=== PATIENT | female | born 1960 | race Caucasian/White ===

== ENCOUNTER 2025-04-24 23:33 | Emergency (ER) | payer MEDICARE, MEDICAID, SELFPAY ==
[2025-04-24 23:34] VITALS: BMI 43.9
[2025-04-24 23:48] VITALS: BP 132/74; RESP 17; TEMP 37; O2SAT 95
--- NOTE | 2025-04-25 00:08 | XR_ITS ---
Examination: Knee, left , 3 views Technique: Knee AP, lateral, oblique 3 views Date and time of exam: April 25, 2025, 0122 hrs. Indications: Onset acute knee pain today. Findings: Moderate osteopenia. Mild narrowing medial joint space Significant narrowing patellofemoral joint No fracture Impression: Significant chondromalacia patella
--- NOTE | 2025-04-25 00:08 | XR_ITS ---
Examination: Duplex scan of the lower extremity, unilateral left Date and time of exam: April 25, 2025, 0047 hrs., Comparison January 06, 2024 Indications: Left lower leg pain beginning several days ago. Technique: Duplex scan of the extremity veins using B-mode/grayscale imaging and Doppler spectral analysis and color flow Attention is directed to internal echogenicity, compression and augmentation involving these veins, color flow assessment, spectral analysis Findings: Major deep venous structures in the extremity demonstrate normal course and caliber. There is no evidence of deep vein thrombosis. Normal color flow and spectral analysis Impression: Negative for DVT..
--- NOTE | 2025-04-25 02:38 | PRELIM_ITS ---
Left lower extremity venous Doppler ultrasound with wave Doppler spectral analysis. April 25, 2025 0047 hours Clinical history: R/O DVT Technique: Duplex scan of the left lower extremity deep venous systems was performed utilizing 2D grayscale imaging, Doppler spectral analysis and color flow Doppler and with compression. Comparison: None. Findings: Robertson scale, color flow and spectral Doppler evaluation of the left lower extremity deep veins was performed. The common femoral, superficial femoral and popliteal veins are patent and compressible. Normal respiratory variation is noted. There is no evidence of occlusive or nonocclusive thrombus. The great saphenous vein is patent and compressible at the level of the saphenofemoral junction. Impression: No sonographic evidence of deep venous thrombosis in the left lower extremity. Report Electronically Signed By: Lokesh Perez 04/25/2025 2:37:38 AM [EST]
--- NOTE | 2025-04-25 03:31 | EDNOTE_ITS ---
Lower Extremity Injury RME/HPI General Chief Complaint: Extremity Injury, Lower Stated Complaint: L KNEE PAIN Time Seen by Provider: 04/24/25 23:40 Arrival date/time: 04/24/25 23:33 This is a case of 65-year-old female who came with with his son patient is deaf able to communicate by the help of his son stated that the patient is complaining of left knee pain for 2 days with swelling patient denies any injury or trauma denies any numbness weakness or tingling sensation patient states that the pain was sharp radiating to his leg but no swelling on the leg no calf tenderness Limitations: no limitations Related Data Previous Rx's ?Medication ?Instructions ?Recorded clotrimazole 1 % topical ointment 1 % .Route BID #56.7 grams 11/29/17 fluconazole 100 mg tablet 100 mg PO Q24H #7 tabs 11/29 (Diflucan) hydrocodone 7.5 mg-acetaminophen 1 tab PO Q8H PRN pain #20 tabs 05/31/21 325 mg tablet hydrocodone 5 mg-acetaminophen 325 1 tab PO Q6H PRN pa in #124 tabs 04/25/25 mg tablet Allergies Allergy/AdvReac Type Severity Reaction Status Date / Time No Known Allergies Allergy Verified 04/24/25 23:39 Review of Systems Review of Systems Systems Reviewed: All systems reviewed, normal except as documented Constitutional Constitutional: Reports system reviewed and no additional complaints, except as documented and Reports as per HPI Cardiovascular Cardiovascular: Reports system reviewed and no additional complaints, except as documented and Reports as per HPI Respiratory Respiratory: Reports system reviewed and no additional complaints, except as documented and Reports as per HPI Gastrointestinal Gastrointestinal: Reports system reviewed and no additional complaints, except as documented and Reports as per HPI Musculoskeletal Musculoskeletal: Reports system reviewed and no additional complaints, except as documented and Reports as per HPI Integumentary/Breasts Skin/Breast: Reports system reviewed and no additional complaints, except as documented Neurologic Neurologic: Reports system reviewed and no additional complaints, except as documented and Reports as per HPI Past Medical History Past Medical History CARDIAC: Negative Congestive Heart Failure RESPIRATORY: Negative Chronic Obstructive Pulmonary Disease (COPD) GENITOURINARY: Negative Renal Disease ENT: Positive Deafness ENDOCRINE: Negative Diabetes Mellitus Type 1 or Diabetes Mellitus Type 2 Social History SMOKING STATUS: Never smoker ED Exam General Limitations: Present no limitations General appearance: Present alert, in no apparent distress and other (Patient is awake alert oriented not in distress nontoxic looking well-hydrated well- nourished) Head Head exam: Present atraumatic, normocephalic and normal inspection Eye Eye exam: Present normal appearance, PERRL and EOMI ENT ENT exam: Present normal exam, normal oropharynx and mucous membranes moist Neck Neck exam: Present normal inspection, full ROM and trachea midline; Absent tenderness, meningismus, lymphadenopathy or thyromegaly Chest Chest inspection: Present normal inspection and symmetric chest wall rise; Absent tenderness or rash Respiratory Respiratory exam: Present normal lung sounds bilaterally; Absent respiratory distress, wheezes, stridor, accessory muscle use or prolonged expiratory phase Cardiovascular Cardiovascular exam: Present regular rate, normal rhythm and normal heart sounds; Absent bradycardia, tachycardia, irregular rhythm, systolic murmur or diastolic murmur Abdominal Exam Abdominal exam: Present soft and normal bowel sounds Extremities Exam Extremities exam: Present normal inspection and full ROM Expanded Lower Extremity Exam Hip/Pelvis exam: Present normal inspection and full ROM; Absent tenderness or swelling Upper leg exam: Present normal inspection and full ROM; Absent tenderness or swelling Knee exam: Present tenderness (Moderate tenderness on the left anterior knee), swelling (Mild swelling), effusion and other (No crepitation no deformity no clicking sound ROM limited due to pain pulses were full and equal capillary refill less than 2 seconds sensory intact negative Sharma's negative Homans signs negative calf tenderness); Absent abrasion, laceration, ecchymosis, deformity, crepitus, dislocation, erythema, anterior drawer sign, posterior draw sign, pain with valgus, laxity with valgus, pain with varus, laxity with varus or knee extension intact Lower leg exam: Present normal inspection, full ROM and Achilles tendon intact; Absent tenderness, swelling or Homans' sign Ankle exam: Present normal inspection and full ROM; Absent tenderness or swelling Back Exam Back exam: Present normal inspection and full ROM Neurological Exam Neurological exam: Present alert, oriented X3, CN II-XII intact, reflexes normal and other (Patient is a unable to perform or test her gait due to pain in the left knee); Absent motor sensory deficit Psychiatric Psychiatric exam: Present normal affect and normal mood Skin Skin exam: Present warm, dry, intact and normal color Course Quality Measures none Orders Category Date Time Status US venous doppler LE LT Stat Exams 04/25/25 00:08 Taken XR knee LT 3V Stat Exams 04/25/25 00:08 Taken Dexamethasone Inj [Decadron Inj] Med 04/25/25 03:27 Discontinued 10 mg PO X1 ONE HYDROcodone*/APAP 5/325 [[place] 5/325] Med 04/25/25 03:27 Discontinued 1 tab PO X1 ONE Vital Signs Vital signs: Vital Signs Temperature 98.6 F 04/24/25 23:48 Respiratory Rate 17 04/24/25 23:48 Blood Pressure 132/74 H 04/24/25 23:48 Pulse Oximetry (%) 95 04/24/25 23:48 Oxygen Delivery Method Room Air 04/24/25 23:48 Oxygen saturation is 95% in room air Extremity Injury, Lower MDM Narrative MDM Narrative:: This is a case of 65-year-old female who came with with his son patient is deaf able to communicate by the help of his son stated that the patient is complaining of left knee pain for 2 days with swelling patient denies any injury or trauma denies any numbness weakness or tingling sensation patient states that the pain was sharp radiating to his leg but no swelling on the leg no calf tenderness physical examination patient is awake alert oriented not in distress not toxic looking patient noted to have moderate tenderness and mild swelling on the left anterior knee no prepatellar or patellar tenderness or swelling but with mild knee joint effusion no crepitation no deformity no clicking sound ROM is limited due to pain pulses were full and equal capillary refill less than 2 seconds sensory intact no calf tenderness negative Homans signs negative Sharma signs x-ray showed no fracture no dislocation ultrasound showed negative for DVT patient was given [place] and prednisone here for possible ost eoarthritis she was advised to see an orthopedic surgeon to be referred by the PCP for MRI of the left knee to rule out meniscus or ligament injury RICE treatment was advised to the patient knee immobilizer was placed on the left knee patient tolerated well neurovascular intact for any worsening symptoms return precaution in the ER was advised Patient was discharged with comfortable condition walking with stable gait. Patient verbalized no further complains explained diagnosis and answered patient question. Patient is comfortable with the proposed management plan including the need to follow up with his/her primary care physician and any specialist if applicable Discussed patient for any urgent condition or worsening sx, He/She needed to go to emergency room immediately or call 911. Patient acknowledge the responsibility to follow up as instructed and to monitor her/his symptoms. For any persistence of the symptoms for more than 3-5 days return precaution advised. Discussed the result of the test and was given printed discharge instruction Patient data External records reviewed:: [facility] previous records Clinical information provided by:: patient Social determinants that could affect healthcare access:: none Patient has the following chronic illnesses:: None How is presenting disease/condition affected by chronic disease/condition?: no chronic disease Evaluation data The following diagnostics were reviewed and interpreted by me:: radiology exam(s) Lab and/or radiology exams considered but not ordered:: Reviewed Interpretation Summary: Reviewed Medications / Prescriptions Medications or Prescriptions considered but not ordered:: Given Medication administrations:: Medication Administration History Discontinued Medications Hydrocodone Bitart/Acetaminophen (Hydrocodone/[place] 5/325 Tablet) 1 tab PO X1 ONE Stop: 04/25/25 03:28 Dexamethasone Sodium Phosphate (Dexamethasone Sod Phos Inj 10 Mg/Ml Vial) 10 mg PO X1 ONE Stop: 04/25/25 03:28 Given Consultations Consultation(s) initiated? (list below): No Diagnosis Extremity Injury, Lower Differential Diagnosis: other (Osteoarthritis knee joint effusion Meniscus injury knee fracture knee sprain) Most likely diagnosis given after review of the tests above:: Osteoarthritis knee joint effusion Admission Indicated Admission indicated?: not indicated Explain why admission is indicated or not indicated:: Not indicated Admission Request Was there a request for admission?: No Admission Attestation Admission request attestation: Not indicated Disposition Plan Disposition Plan: Discharge Discharge Attestation Discharge Attestation: The patient and all family members were given an opportunity to ask questions and understood the discharge instructions. Discharge instructions specifically effects, indications for sooner follow up or return to the emergency department, and the expected course of current diagnosis. Patient condition: Stable Discharge Plan Plan Patient condition on transfer: Stable Prescriptions/Referrals Prescriptions/Med Rec: New hydrocodone-acetaminophen 5-325 mg tablet 1 tab PO Q6H MDD MAX 4 TABS PER DAY PRN (Reason: pain) Qty: 124 0RF No Action fluconazole [Diflucan] 100 mg tablet 100 mg PO Q24H Qty: 7 0RF clotrimazole 1 % ointment 1 % .Route BID Qty: 56.7 0RF Rx Instructions: Please apply the cream twice daily. hydrocodone-acetaminophen 7.5-325 mg tablet 1 tab PO Q8H MDD 4 tabs PRN (Reason: pain) Qty: 20 0RF Referrals: Sil Valdez PA-C [Primary Care Provider] - In 1 week Problem List Clinical Impression: Knee pain, right, Joint effusion, knee, Osteoarthritis Patient/Caregiver Discharge Instructions Education Materials: ED Knee Pain of Uncertain Cause, ED Knee Immobilizer, ED Knee Effusion, ED RICE, Osteoarthritis Additional Instructions: Follow-up with your primary care physician in 2 days for reevaluation and to be referred to orthopedic surgeon for further evaluation and treatment of osteoarthritis and knee joint effusion for possible MRI to ruled out meniscus or ligament injury recurrence persistent worsening symptoms or any emergent concern call 911 or go to the nearest emergency room ice pack and warm compress as needed for pain elevate to decrease swelling keep the knee immobilizer in place until cleared by your primary care physician Print Language: Bengali PA/FRUIT RAISER Supervising Physician PA/FRUIT RAISER Supervising Physician: Dr. Lorenzo
[2025-04-25] MEDS: HYDROcodone/APAP 5/325 TABLET 1 TAB PO (03:40)
[2025-04-25] MEDS: DEXAMETHASONE SOD PHOS INJ 10 MG/ML VIAL PO (03:42)
[2025-04-25 03:45] VITALS: BP 149/82; PULSE 74; RESP 18; O2SAT 99
== END 2025-04-25 03:47 | disposition home or self-care (01) ==
PROVIDERS: Emergency Provider Emergency Medicine; PCP Physician Assistant
DX: M17.11 Unilateral primary osteoarthritis, right knee (principal); M79.662 Pain in left lower leg
CPT/HCPCS: 73562; 93971; 99283; J1100; A9270

== ENCOUNTER → 2025-08-24 | Outpatient (CLI) | payer MEDICARE, MEDICAID, SELFPAY ==
--- NOTE | 2025-08-24 10:00 | XR_ITS ---
EXAM: Fluoroscopic guided pre-CT right knee arthrogram. INDICATION: Pain. DATE: 08/24/2025, 10:25 a.m. Fluoroscopy time: 3.2 minutes Dose: 5.61 mGy PROCEDURE: Patient was brought to the fluoroscopy suite and placed supine on the exam table.. Preliminary fluoroscopic evaluation demonstrated normal alignment of the left knee with joint space narrowing. This was targeted for arthrogram. The overlying skin was cleaned and draped in normal sterile surgical fashion. 10 cc of 1% lidocaine was used for local anesthesia. Using fluoroscopic guidance a 21-gauge spinal needle was sequentially advanced into the left knee joint space. 10 mL of Isovue-300 were injected under direct fluoroscopic guidance. Needle was withdrawn. Hemostasis was achieved The access site was covered with a sterile dressing. There were no immediate complications. IMPRESSION: Successful pre-CT left knee arthrogram as above.
--- NOTE | 2025-08-24 10:30 | XR_ITS ---
Examination: CT left knee post intra-articular contrast, 2-D sagittal reconstructions. 2-D coronal reconstructions. 3-D reconstructions. Date and time of exam: August 24, 2025, 1151 hours INDICATIONS: Chronic knee pain CTDI: vol (mGy): 11.3 DLP: (mGycm): 306 Technique: Multiple 1.25 mm axial sections of the left knee without intravenous contrast, but with 15 cc Isovue-300 introduced in the knee joint have been obtained. 2-D sagittal and coronal reconstructions have been obtained. 3-D reconstructions have been obtained. Low dose protocols were performed. One or more of the following dose reduction techniques were used; automated exposure control, adjustment of the mA and/or KV according to patient size, use of iterative reconstruction technique. Findings: Advanced thinning of the cartilages patellofemoral joint Cruciate ligaments appear intact No meniscus tears depicted Moderate thinning cartilage medial lateral joint spaces IMPRESSION: Significant chondromalacia patella Cruciate ligaments appear intact No meniscus tears depicted Consider MRI knee without contrast follow-up
== END | disposition home or self-care (01) ==
LOC: SIRX 10:06
PROVIDERS: PCP Physician Assistant; Referring Provider Physician Assistant; Visit Provider Physician Assistant
DX: M22.40 Chondromalacia patellae, unspecified knee (principal); M23.92 Unspecified internal derangement of left knee
CPT/HCPCS: 27369; 73580; 73700; Q9967